=== PATIENT | male | born 1990 ===

== ENCOUNTER 2017-01-28 16:34 | Emergency (ER) | payer OTHER ==
[~2017-01-28] VITALS: Ht 175.3 cm; Wt 73.0 kg
[2017-01-28 16:38] VITALS: TEMP 36.8; Ht 175.3 cm; Wt 73.0 kg
[2017-01-28] MEDS ORDERED: DIPH1TAB87 PO (16:48)
[2017-01-28] MEDS ORDERED: ACET-749 PO (16:48)
[2017-01-28] MEDS ORDERED: ONDANSETRON 4MG OD TAB PO STA (16:51)
[2017-01-28] MEDS ORDERED: MoRPHine SULFATE 10 MG/ML CARP/VIAL IM STA (16:51)
--- NOTE | 2017-01-28 17:20 | DIAGNOSTIC IMAGING REPORT ---
RIGHT FOOT MIN 3 VIEWS ROUTINE, RIGHT ANKLE MIN 3 VIEWS ROUTINE CLINICAL HISTORY: R ankle/foot pain Right COMPARISON STUDY: None. FINDINGS: Diffuse soft tissue swelling within the ankle and dorsal soft tissue swelling within the foot. No fracture or dislocation. No radiopaque foreign bodies. IMPRESSION: No fractures within the right ankle or right foot. Soft tissue swelling. Electronically signed by: Jhon Waddell M.D. 01/28/2017 5:19 PM Dictated Date/Time: 01/28/2017 5:16 PM
[2017-01-28] MEDS ORDERED: TRAM-10 PO (17:36)
[2017-01-28 17:43] VITALS: BP 106/65; PULSE 78; O2SAT 95
--- NOTE | 2017-01-28 19:27 | EMERGENCY ROOM VISIT NOTE ---
History First contact with patient: 16:48 Chief Complaint: ANKLE PAIN Stated Complaint: EDEMA IN LEG-R History of Present Illness The patient is a 26 year old male inmate who presents to the Emergency Room with complaints of persistent right ankle and foot pain with swelling and bruising. The patient reports that he injured his ankle playing basketball last week. He reports feeling a couple pops in the ankle. He continues to walk on the ankle. Security state that he does have crutches. He rates his discomfort a 10 out of 10. He denies any prior history of right ankle injuries. Review of Systems 10 system review was performed and was negative except for pertinent positives and negatives as indicated in history of present illness Past Medical/Surgical History Medical Problems: (1) No significant past medical history Surgical Problems: (1) No history of previous surgery Social History Smoking Status: Current Every Day Smoker Alcohol Use: none Marital Status: single Housing Status: other (incarcerated) Current/Historical Medications Scheduled Diphenhydramine Hcl (Benadryl Allergy), 1 TAB PO DAILY Scheduled PRN Acetaminophen/Codeine (Tylenol W/Codeine #3), 1 TAB PO TID PRN for Pain Tramadol (Ultram), 1-2 TAB PO Q4H PRN for Pain Allergies Coded Allergies: No Known Allergies (Unverified , 01/28/17) Physical Exam Vital Signs Date Time Temp Pulse Resp B/P Pulse Ox O2 Delivery O2 Flow Rate FiO2 01/28/17 17:43 78 106/65 95 01/28/17 16:38 36.8 64 20 125/71 95 Room Air Pain Rating (0-10): 3.0 Physical Exam CONSTITUTIONAL: Healthy and well nourished. Alert and oriented X 3 with positive affect. Patient appears in moderate discomfort from pain. HEENT: Normocephalic, atraumatic. Pupils equal, round and reactive. NECK: Full active range of motion without discomfort. MUSCULOSKELETAL: Examination shows significant right ankle and foot edema with ecchymosis. No open wounds noted. The patient is tender about the entire ankle and dorsum of the foot. Negative anterior draw. Pedal pulses are intact. INTEGUMENTARY: No rash or other significant dermatologic conditions noted. NEUROLOGIC: Right foot and toes are sensory intact. Medical Decision & Procedures ER Provider Diagnostic Interpretation: My interpretation of right ankle and foot x-rays does not show any acute fractures, dislocations or ankle mortise asymmetry. Radiologist reports were also reviewed with concurrence. Medications Administered Medications (Trade) Dose Ordered Sig/Felipa Route Start Time Stop Time Status Last Admin Dose Admin Morphine Sulfate (MoRPHine SULFATE INJ) 10 mg NOW STAT IM 01/28/17 16:51 01/28/17 16:53 DC 01/28/17 17:12 10 MG Ondansetron HCl (Zofran Odt) 4 mg NOW STAT PO 01/28/17 16:51 01/28/17 16:53 DC 01/28/17 17:11 4 MG ED Course Patient history and physical exam were performed. Nurse's notes were reviewed. The patient was administered IM morphine and Zofran ODT for pain. X-rays of the right ankle and foot were normal. The patient was instructed to remain nonweightbearing, using his crutches. He was encouraged to alternate ibuprofen and Tylenol for baseline pain relief. The patient was provided a prescription for Ultram as needed for breakthrough pain. The patient will be referred to [facility] for further reevaluation and management. The patient voiced understanding of all discharge instructions, and rated his pain a 3 out of 10. Impression Primary Impression: Right ankle sprain Departure Information Dispostion Home / Self-Care Condition GOOD Prescriptions Tramadol (Ultram) 50 Mg Tab 1-2 TAB PO Q4H Y for Pain, #20 TAB For Initial Treatment Prov: Diogenes Thomas PA 01/28/17 Forms HOME CARE DOCUMENTATION FORM, IMPORTANT VISIT INFORMATION Patient Instructions My [facility] Additional Instructions Intermittently apply ice and elevate ankle/foot above heart for swelling and pain. Use crutches - no weight on foot. Ibuprofen 800 mg and/or Tylenol 1000 mg every 8 hours. You may also alternate these medications for more effective pain relief: Ibuprofen --4 HRS--> Tylenol --4 HRS--> ibuprofen --4 HRS--> Tylenol .... Ultram if needed for worse pain. Follow-up with [facility] for further reevaluation and management - call Monday for an appointment. Problem Qualifiers Primary Impression: Right ankle sprain Encounter type: initial encounter Involved ligament of ankle: unspecified ligament Qualified Codes: S93.401A - Sprain of unspecified ligament of right ankle, initial encounter
== END 2017-01-28 17:44 | disposition home or self-care (01) ==
LOC: C.EDB 16:37 → C.EDD 17:44
DX: S93.401A Sprain of unspecified ligament of right ankle, initial encounter (principal); X58.XXXA Exposure to other specified factors, initial encounter; Y93.67 Activity, basketball; F17.200 Nicotine dependence, unspecified, uncomplicated

== ENCOUNTER 2017-02-14 20:41 | Inpatient (IN) | payer OTHER ==
[~2017-02-14] VITALS: Ht 175.3 cm; Wt 71.0 kg
[~2017-02-14 20:41] MED LIST: ACET-749 PO; DIPH1TAB87 PO; TRAM-10 PO
[2017-02-14] MEDS ORDERED: ACET-1256 PO (21:13)
[2017-02-14] MEDS ORDERED: CLR10 PO (21:13)
[2017-02-14] MEDS ORDERED: DIVA500T5 PO (21:13)
[2017-02-14] MEDS ORDERED: DIPH25CA65 PO (21:13)
[2017-02-14] MEDS ORDERED: SERT50TA PO (21:13)
[2017-02-14] MEDS ORDERED: VNTHFA/IN INH (21:13)
[2017-02-14] MEDS ORDERED: ONDANSETRON INJ 2 MG/ML 2 ML VIAL IV STA (21:39)
[2017-02-14] MEDS ORDERED: MoRPHine SULFATE 10 MG/ML CARP/VIAL IV STA (21:39)
[2017-02-14] MEDS ORDERED: SODIUM CHLORIDE 0.9% 1000ML 1,000 ML IV ONE (21:45)
[2017-02-14 22:06] LABS: BASO % 0.4 %; BASO ABS # 0.03 K/uL (0-0.2); COMPLETE YES; EOS % 2.3 %; IG% 0.2 %; LYMPH % 29.5 %; LYMPH ABS # 2.52 K/uL (1.2-3.4); MEAN CELL VOLUME 96.2 fL (80-100); MEAN CORPUSCULAR HEMOGLOBIN 34.9 pg (25-34); MEAN CORPUSCULAR HGB CONC 36.3 g/dl (32-36); MEAN PLATELET VOLUME 10.4 fL (7.4-10.4); MONO % 11.5 %; NEUT % 56.1 %; PLATELET COUNT 255 K/uL (130-400); RED BLOOD COUNT 4.16 M/uL (4.7-6.1); WHITE BLOOD COUNT 8.54 K/uL (4.8-10.8)
[2017-02-14 22:24] LABS: BUN/CREATININE RATIO 13.9 (10-20); CREATININE 0.7 mg/dl (0.60-1.40)
--- NOTE | 2017-02-14 22:25 | DIAGNOSTIC IMAGING REPORT ---
RIGHT FOOT MIN 3 VIEWS ROUTINE CLINICAL HISTORY: Right foot pain COMPARISON: 01/28/2017 DISCUSSION: No fractures or dislocations are visualized. There is no erosive disease. IMPRESSION: No evidence of fracture. No evidence of erosive disease. Electronically signed by: Orlando Guillermo M.D. 02/14/2017 10:24 PM Dictated Date/Time: 02/14/2017 10:23 PM
--- NOTE | 2017-02-14 22:28 | DIAGNOSTIC IMAGING REPORT ---
RIGHT ANKLE MIN 3 VIEWS ROUTINE CLINICAL HISTORY: Right ankle pain. Trauma. COMPARISON: 01/28/2017 DISCUSSION: There is a subtle lucency at the level of the medial malleolar tip. This likely represents a projectional artifact although a nondisplaced fracture cannot be excluded with certainty. There is lateral soft tissue swelling. No fractures the distal fibular visualized. The ankle mortise appears intact. IMPRESSION: Subtle transverse lucency involving the medial malleolar tip. While likely representing a projectional artifact, a nondisplaced fracture cannot be excluded with certainty Electronically signed by: Orlando Guillermo M.D. 02/14/2017 10:27 PM Dictated Date/Time: 02/14/2017 10:24 PM
[2017-02-14 22:29] LABS: CKMB/CK RATIO 1.7 (0-3.0)
[2017-02-14] MEDS ORDERED: NURSING VERBAL MED ORDER ONE (23:30)
[2017-02-15 00:25] VITALS: BP 117/76; PULSE 59; TEMP 36.7; O2SAT 97
[2017-02-15 00:50] VITALS: Ht 175.3 cm; Wt 71.0 kg
--- NOTE | 2017-02-15 00:50 | EMERGENCY ROOM VISIT NOTE ---
ED Visit Note First contact with patient: 21:32 I have personally evaluated and examined this patient. I agree with assessment and plan of Sj Velez PA-C. 26 yr old male with right ankle injury 2 weeks ago. Note with increased swelling, severe ankle/upper foot pain, loss of sensation in toes, decreased cap refill. Does have pulses though difficult to say they are equal to left as there is so much swelling of ankle/foot. Imaging reveals there is fracture which did not appear on previous imaging. Likely this is increased pressure due to being in [facility] and not keeping leg elevated. There is no evidence of septic joint at this time without redness, fever, streaking, nor WBC elevation. Discussed with ortho who will bring in for further work-up and evaluation.
[2017-02-15] MEDS ORDERED: ACETAMINOPHEN 325 MG TAB PO PRN (01:00)
[2017-02-15] MEDS ORDERED: MoRPHine SULFATE 2 MG/ML CARP IV PRN (01:00)
[2017-02-15] MEDS: LACTATED RINGER'S 1000ML 1,000 ML IV SCH (01:16)
--- NOTE | 2017-02-15 01:48 | EMERGENCY ROOM VISIT NOTE ---
ED Visit Note First contact with patient: 21:16 Chief Complaint: Right foot pain. History of Present Illness: Mr. Ahmadi is a 26-year-old male who is brought into the ED in a wheelchair accompanied by 2 senior living guards complaining of right foot pain. Historically patient reports on approximately January 21 he injured his right ankle and foot playing basketball. He was seen in this ED on January 28 and had x -rays of the foot and ankle performed that showed no acute fractures or dislocations but mild swelling. He was placed on nonweightbearing crutches and discharged back to the senior living for follow-up with orthopedics. Since being return to senior living he reports he has not been able to follow-up with orthopedics; the guards that brought the patient to the emergency department as well as my discussing the case with nursing personnel at the senior living no reason was noted while he was never followed up with orthopedics. Patient reports since being discharge from this emergency department he has severe pain throughout the foot excluding the posterior aspect of the foot including the Achilles tendon and calcaneus. He describes his pain as a pressure and sharp sensation. He rates his discomfort 9/10. The pain is nonradiating. The pain worsens with palpation, all movement of the ankle, any attempt to ambulate without crutches. He has not identified any alleviating factors related to the pain. He reports he has been taken Tylenol without relief of his discomfort. Associated with his pain he reports he cannot feel his foot and he has noted moderate swelling of the foot. He denies any hip pain, knee pain, lower leg pain, previous significant injuries or surgeries to the ankle/foot, fevers, chills. In the nursing notes that accompany the patient they noticed a decreased capillary refill time when compared bilaterally. Review of Systems: As noted above in history of present illness. Past Medical History: Asthma, depression. Current Medications: Medications Dose Route/Sig Max Daily Dose Days Date Category Ventolin Hfa (Albuterol) 200 Puffs/22275 Mcg Aers 2 Puffs INH QID PRN 02/14/17 Reported Zoloft (Sertraline HCl) 50 Mg Tab 50 Mg PO HS 02/14/17 Reported Claritin (Loratadine) 10 Mg Tab 10 Mg PO DAILY 02/14/17 Reported Depakote Delay Rel (Divalproex Sodium) 500 Mg Tab 1,000 Mg PO HS 02/14/17 Reported Benadryl Allergy (Diphenhydramine Hcl) 25 Mg Cap 50 Mg PO HS 30 02/14/17 Reported Tylenol (Acetaminophen) 500 Mg Tab 1,000 Mg PO BID 02/14/17 Reported Allergies to Medications: Patient denies and none reported. Social History: Patient is currently incarcerated. Physical Examination: Vital Signs: Date Time Temp Pulse Resp B/P Pulse Ox O2 Delivery O2 Flow Rate FiO2 02/14/17 22:39 78 18 119/78 97 Room Air 02/14/17 20:57 36.9 80 16 123/62 96 Room Air GENERAL: 26-year-old male in mild to moderate distress due to pain, nontoxic- appearing, afebrile and hemodynamically stable. NEUROLOGICAL: Awake, alert and oriented to person, place and time. Answering questions appropriately and following commands. SKIN: Warm, dry and pink. Right Foot: Is swollen and slightly discolored. No ecchymosis or bruising. Patient has a small erythematous area just proximal to the toes. This area does not appear cellulitic or feels warmer than other skin tissue. No soft tissue trauma was seen. THORAX: Lungs sounds are clear to auscultation and equal bilaterally with symmetrical chest wall. No wheezing, rales or rhonchi. No crepitus, tenderness , subcutaneous air or deformities noted. HEART: Regular rate and rhythm. No gallops, rubs or murmurs are appreciated. ABDOMEN: Flat, soft and nontender. Positive bowel sounds in all quadrants. No guarding, rigidity or organomegaly. RIGHT LOWER EXTREMITY: No gross bony deformity. No tenderness in the hip, thigh , ankle or lower leg. Moderate tenderness over the medial, lateral and top of the foot. There is mild diffuse swelling throughout the foot. As previously noted there is a small area of erythema proximal to the toes that does not appear cellulitic or is hot to the touch. There is no lymphangitis from this area. I do not appreciate any bony deformities or crepitus. Any attempt to move the ankle or the toes increases the patient's discomfort. Dorsalis pedis and anterior tibialis pulse is intact. Capillary refill was slightly delayed prior to approximately 1 second when compared bilaterally. Patient reports he could not feel me palpating his foot after multiple attempts. Patient refused to do range of motion exercises of the feet and toes due to pain. ED Course: Patient is assessed as noted above. Laboratory Testing: Test 02/14/17 21:55 Range/Units White Blood Count 8.54 4.8-10.8 K/uL Red Blood Count 4.16 4.7-6.1 M/uL Hemoglobin 14.5 14.0-18.0 g/dL Hematocrit 40.0 42-52 % Mean Corpuscular Volume 96.2 80-100 fL Mean Corpuscular Hemoglobin 34.9 25-34 pg Mean Corpuscular Hemoglobin Concent 36.3 32-36 g/dl Platelet Count 255 130-400 K/uL Mean Platelet Volume 10.4 7.4-10.4 fL Neutrophils (%) (Auto) 56.1 % Lymphocytes (%) (Auto) 29.5 % Monocytes (%) (Auto) 11.5 % Eosinophils (%) (Auto) 2.3 % Basophils (%) (Auto) 0.4 % Neutrophils # (Auto) 4.79 1.4-6.5 K/uL Lymphocytes # (Auto) 2.52 1.2-3.4 K/uL Monocytes # (Auto) 0.98 0.11-0.59 K/uL Eosinophils # (Auto) 0.20 0-0.5 K/uL Basophils # (Auto) 0.03 0-0.2 K/uL RDW Standard Deviation 46.0 36.4-46.3 fL RDW Coefficient of Variation 13.1 11.5-14.5 % Immature Granulocyte % (Auto) 0.2 % Immature Granulocyte # (Auto) 0.02 0.00-0.02 K/uL Sodium Level 143 136-145 mmol/L Potassium Level 4.0 3.5-5.1 mmol/L Chloride Level 107 98-107 mmol/L Carbon Dioxide Level 29 21-32 mmol/L Anion Gap 7.0 3-11 mmol/L Blood Urea Nitrogen 10 7-18 mg/dl Creatinine 0.70 0.60-1.40 mg/dl Est Creatinine Clear Calc Drug Dose 158.6 ml/min Estimated GFR () 149.9 Estimated GFR (Non- 129.3 BUN/Creatinine Ratio 13.9 10-20 Random Glucose 91 70-99 mg/dl Calcium Level 9.0 8.5-10.1 mg/dl Total Creatine Kinase 115 39-308 U/L Creatine Kinase MB 1.9 0.5-3.6 ng/ml Creatine Kinase MB Ratio 1.7 0-3.0 Right Foot X-Rays: Were read by myself and the radiologist showing no acute fractures or dislocations when compared to previous. Right Ankle X-Rays: Were read by myself and the radiologist showing a subtle lucency involving the tip of the medial malleolus that was not apparent on his previous x-rays. The radiologist queries while this is truly a nondisplaced fracture or possible object time artifact. An IV lock was initiated and patient received 6 mg of morphine IV for pain and 4 mg of Zofran IV. Patient was reassessed multiple times during his stay in the emergency department. Patient's case was reviewed with Dr. Murguia; he independently assessed the patient we agreed on diagnostic approach, treatment, disposition and plan. Dr. Murguia consulted Dr. Eris Gamboa, orthopedist for specialty care and treatment. Dr. Gamboa felt the patient should be admitted for observation and reevaluation in the morning. Patient and senior living staff were noted about patient's observation/admission. Patient was educated about today's findings. Clinical Impression: Right foot/ankle pain. Right foot/ankle swelling and numbness. Decision-Making: Initially my differential diagnosis I considered fracture, sprain, uncontrolled swelling, compartment syndrome and other causes. Disposition and Plan: Patient be brought in the hospital by Dr. Eris Gamboa, orthopedist, for observation/admission. Please see his notes and orders for final disposition and plan.
[2017-02-15] MEDS: MoRPHine SULFATE 2 MG/ML CARP IV PRN ×2 (03:47→19:24)
[2017-02-15] MEDS: OXYCODONE HCL IR 5 MG TAB (IMMEDIATE RELEASE) PO PRN ×2 (08:07→12:50)
--- NOTE | 2017-02-15 09:49 | HISTORY & PHYSICAL EXAMINATION ---
DATE OF ADMISSION: 02/14/2017 CHIEF COMPLAINT: Left ankle pain and swelling. HISTORY OF PRESENT ILLNESS: Mr. Ahmadi is a 26-year-old male who presented to the ER last night in a wheelchair [facility]. He was accompanied by 2 senior living guards for right foot pain. The patient states on 01/21/2017 he injured his right ankle playing basketball, he was seen in the Emergency Room on 01/28/2017. He had normal x-rays and was discharged with nonweightbearing status, a walking boot and was to follow up with orthopedics. The patient has not followed up with orthopedics but reason is unknown at this time. He had severe pain throughout the foot since his discharge. He has no radicular symptoms. He denies any low back pain or other injuries from this fall. The patient states he is unable to move his foot and has had numbness in his toes. This morning the numbness seems to have resolved. He still has difficulty moving his foot in any direction. He finds he has only had relief of his pain with his knee flexed in an external rotation. He has been taking Tylenol extra strength without relief. He states he has been compliant with his walking boot and his nonweightbearing status. He denied fever or chills at this time. PAST MEDICAL HISTORY: Asthma and depression. FAMILY HISTORY: Negative. SOCIAL HISTORY: The patient is currently incarcerated. He smokes cigarettes. He denies alcohol or other drug use. He is not and has 2 children. MEDICATIONS: Ventolin HFA 200 mg 2 puffs q.i.d. p.r.n., Zoloft 50 mg at bedtime, Claritin 10 mg daily, Depakote 1000 mg at bedtime, Benadryl 50 mg at bedtime, Tylenol 500 mg 2 tablets b.i.d. ALLERGIES: None. REVIEW OF SYSTEMS: See HPI. Ten other systems reviewed, all negative. PHYSICAL EXAMINATION: VITAL SIGNS: Height is 69 inches, weight 71 kilograms. BMI is 23. GENERAL: This is a well-developed, well-nourished male who is alert and oriented x3. Mood and affect are appropriate. HEAD, EYES, EARS, NOSE, AND THROAT: Normocephalic, atraumatic. Mucous membranes are moist and intact. NECK: Supple without lymphadenopathy. HEART: Regular rate and rhythm without murmurs, rubs or gallops. LUNGS: Clear to auscultation without wheezes or rhonchi. ABDOMEN: Soft and nontender. Bowel sounds are equal and active. EXTREMITIES: With attention to the right ankle the patient has no obvious deformity. He has some mild ecchymosis around the medial malleolus. He is diffusely tender throughout the whole foot and ankle. He has moderate edema. He has no obvious erythema or warmth to touch. There is no lymphangitis. The patient is unable to actively plantarflex or dorsiflex. He essentially has very limited range of motion of the foot. Any kind of passive range of motion causes pain. Distal pulses and capillary refill are intact. Again, he is diffusely tender but the majority of his tenderness seems to be over the medial malleolus. LABORATORY RESULTS: White count is 8.5. Electrolytes are all within normal limits. X-RAY EXAMINATION: AP and lateral views of the ankle are essentially normal. His has a transverse lucency of the medial tip of the medial malleolus. This could be potentially artifact, but a fracture is not excluded. IMPRESSION: Left ankle pain. Possible avulsion fracture. PLAN: The patient seems to be getting some relief with some mild elevation overnight. We will continue to monitor. The patient at this time is his foot is warm. There is no obvious discoloration. His vascular status seems to be intact. Would like to observe him throughout the day. If he does not improve with sensation, range of motion we need to consider an MRI later this afternoon. Will discuss with Dr. Matson who is the rounding physician today. He will continue oxycodone 5-10 mg for pain. He also has IV morphine ordered for break-through pain. He is also getting Tylenol p.r.n. Continue nonweightbearing status. [facility]
[2017-02-15 15:50] VITALS: BP 98/58; PULSE 69; TEMP 36.7; O2SAT 97
[2017-02-15] MEDS ORDERED: NURSING VERBAL MED ORDER ONE (18:30)
[2017-02-15] MEDS: ONDANSETRON INJ 2 MG/ML 2 ML VIAL IV PRN (19:23)
[2017-02-15 22:45] VITALS: BP 113/46; PULSE 61; TEMP 36.6; O2SAT 96
[2017-02-16] MEDS: LACTATED RINGER'S 1000ML 1,000 ML IV SCH (01:08)
[2017-02-16 06:57] VITALS: BP 100/49; PULSE 63; TEMP 36.7; O2SAT 96
[2017-02-16 09:30] VITALS: O2SAT 96
--- NOTE | 2017-02-16 09:32 | DIAGNOSTIC IMAGING REPORT ---
MRI OF THE RIGHT HINDFOOT NO CONTRAST CLINICAL HISTORY: Right foot pain. Evaluate for abscess. COMPARISON STUDY: Conventional radiographic study dated 02/14/2017 FINDINGS: There is marrow edema involving the distal fibula, and medial malleolus. A discrete fracture line is not visualized. There is soft tissue edema, most pronounced laterally. No tendon ruptures are visualized. There is mild intrasubstance signal within the peroneus longus tendon. There is no evidence of major ligamentous disruption. There are no fluid collections to indicate an abscess on this noncontrast study. IMPRESSION: 1. Marrow edema involving the distal fibula and medial malleolus consistent with bone bruises. Discrete fracture lines are not visualized 2. No evidence of major ligamentous disruption 3. No evidence of tendon rupture. 4. No abscess identified 5. Soft tissue edema Electronically signed by: Orlando Guillermo M.D. 02/16/2017 9:30 AM Dictated Date/Time: 02/16/2017 9:21 AM
[2017-02-16] MEDS: OXYCODONE HCL IR 5 MG TAB (IMMEDIATE RELEASE) PO PRN (09:45)
[2017-02-16] MEDS: ONDANSETRON INJ 2 MG/ML 2 ML VIAL IV PRN (11:11)
[2017-02-16] MEDS: KETOROLAC TROMETHAMINE 30 MG/ML VIAL IV SCH ×2 (15:40→22:03)
[2017-02-16 16:00] VITALS: BP 116/68; PULSE 84; TEMP 36.7; O2SAT 97
--- NOTE | 2017-02-16 16:04 | Orthopedic Progress Note ---
Orthopedic Progress Note Date of Service February 16, 2017. Subjective Additional Notes: No new changes. Continues with pain in the right foot/ankle. MRI done this AM. Objective capillary refill less than 2 sec. Right ankle with swelling. Dorsum of foot with mild swelling. Tender on palpation and ROM. DP pulse present. Date Time Temp Pulse Resp B/P Pulse Ox O2 Delivery O2 Flow Rate FiO2 02/16/17 09:30 96 Room Air 02/16/17 06:57 36.7 63 16 100/49 96 Room Air 02/15/17 22:45 36.6 61 16 113/46 96 Room Air 02/15/17 19:55 Room Air Additional Notes: MRI OF THE RIGHT HINDFOOT NO CONTRAST CLINICAL HISTORY: Right foot pain. Evaluate for abscess. COMPARISON STUDY: Conventional radiographic study dated 02/14/2017 FINDINGS: There is marrow edema involving the distal fibula, and medial malleolus. A discrete fracture line is not visualized. There is soft tissue edema, most pronounced laterally. No tendon ruptures are visualized. There is mild intrasubstance signal within the peroneus longus tendon. There is no evidence of major ligamentous disruption. There are no fluid collections to indicate an abscess on this noncontrast study. IMPRESSION: 1. Marrow edema involving the distal fibula and medial malleolus consistent with bone bruises. Discrete fracture lines are not visualized 2. No evidence of major ligamentous disruption 3. No evidence of tendon rupture. 4. No abscess identified 5. Soft tissue edema Assessment & Plan Assessment: Contusion Right Distal Fibula and Medial Malleolus Plan: High Tide walking boot ordered Once fitted, plan for PT /gait training and dc tomorrow Inhouse Planning Pain Management: Toradol, Ultram, Oxy IR DVT Prophylaxis: ASA Discharge Planning Discharge Planning: home Pain Management: Ultram DVT Prophylaxis: ASA
[2017-02-16] MEDS ORDERED: OXYCODONE HCL IR 5 MG TAB (IMMEDIATE RELEASE) PO PRN (17:00)
[2017-02-16] MEDS: TRAMADOL HCL 50 MG TAB PO PRN (20:06)
[2017-02-16 22:52] VITALS: BP 106/62; PULSE 63; TEMP 36.7; O2SAT 96
[2017-02-17] MEDS: LACTATED RINGER'S 1000ML 1,000 ML IV SCH (00:11)
[2017-02-17] MEDS: TRAMADOL HCL 50 MG TAB PO PRN ×2 (00:18→07:14)
[2017-02-17] MEDS: KETOROLAC TROMETHAMINE 30 MG/ML VIAL IV SCH ×2 (03:25→08:18)
[2017-02-17] MEDS ORDERED: NURSING VERBAL MED ORDER ONE (07:15)
[2017-02-17 07:33] VITALS: BP 104/64; PULSE 62; TEMP 36.7; O2SAT 97
[2017-02-17] MEDS: ONDANSETRON INJ 2 MG/ML 2 ML VIAL IV PRN (08:45)
[2017-02-17] MEDS ORDERED: ASPIRIN 325 MG ECTAB PO SCH (09:00)
[2017-02-17 09:43] VITALS: O2SAT 99
[2017-02-17] MEDS ORDERED: IBUP-1427 PO (12:01)
[2017-02-17] MEDS ORDERED: ULT50X PO (12:01)
--- NOTE | 2017-02-17 12:10 | Discharge Instructions ---
Discharge Instructions Date of Service February 17, 2017. Admission Reason for Admission: Right Foot Pain Discharge Discharge Diagnosis / Problem: Right Distal Fibula/Medial Malleolar Bone Contusion Discharge Goals Goal(s): Decrease discomfort, Improve function Activity Recommendations Activity Limitations: per Instructions/Follow-up section Weightbearing Status: Right weightbearing (as tolerated) . Instructions / Follow-Up Instructions / Follow-Up Wear the boot at all times when up ambulating. You may put as much weight as you can tolerate on the foot. Initially, you might only be able to do partial weight bearing. Increase the amount of weight you put on it as it feels better. Use crutches for ambulation if needed Keep the foot up and elevated on 1 - 2 pillows to reduce swelling Gentle range of motion exercises of the ankle as able Ice to ankle as needed Follow up with Dr Gamboa in 2 weeks if symptoms persist. [phone] Current Hospital Diet Patient's current hospital diet: Regular Diet Discharge Diet Recommended Diet: Regular Diet Pending Studies Studies pending at discharge: no Medical Emergencies . Who to Call and When: Medical Emergencies: If at any time you feel your situation is an emergency, please call 911 immediately. . Non-Emergent Contact Non-Emergency issues call your: Primary Care Provider . "Provider Documentation" section prepared by Marques Del Cid. . VTE Core Measure Inpt VTE Proph given/why not?: Other Anticoagulation [place] Drug Monitoring Program Search Results: patient reviewed within database, no issues identified
[2017-02-17 12:42] VITALS: BP 107/59; PULSE 75; TEMP 36.7; O2SAT 99
--- NOTE | 2017-02-21 12:21 | DISCHARGE SUMMARY ---
DISCHARGE DIAGNOSIS: Contusion to right distal fibula and medial malleolus. SECONDARY DIAGNOSES: Asthma, depression. CONSULTS: None. COMPLICATIONS: None. PROCEDURES: None. BRIEF HISTORY: As dictated in history and physical. HOSPITAL SUMMARY: The patient was admitted on the above noted date with the above noted right ankle pain and swelling. He was started on bed rest and pain control. X-rays were showing no evidence of fracture and no evidence of osteomyelitis. There was a subtle lucency noted on the medial malleolar tip of the ankle film, but could have been artifact. The patient continued to have pain and an MRI was ordered. By his second hospital day, he had no new changes, he continued to have pain in the right foot and ankle. MRI showed marrow edema involving the distal fibula and medial malleolus consistent with bone bruises. Discrete fracture lines are not visualized. There is no evidence of ligamentous disruption, tendon ruptures or abscesses. There was some slight soft tissue edema. This was discussed with [facility] physicians and at that point in time, a high tide walking boot was ordered and fitted by orthotics here from [facility]. He was then started on PT protocol for gait training and will be weightbearing as tolerated. It was explained to the patient that he may only be able to put partial weight on it for now and then increase as tolerated. Otherwise, he remained stable and by 02/17/2017 it was felt that he was stable for discharge. For further review, please see chart. LAB AND X-RAY DATA: As per chart. DISCHARGE INSTRUCTIONS: The [facility]. DIET: Regular. ACTIVITY: Weightbearing as tolerated right lower extremity. Follow instructions as noted and follow up with Dr. Gamboa in 2 weeks. The patient to call for appointment. DISCHARGE MEDICATIONS: Ibuprofen 600 mg p.o. q. 6 hours p.r.n., resume taking acetaminophen 1000 mg p.o. b.i.d., albuterol 2 puffs inhaled q.i.d., Benadryl Allergy 50 mg p.o. at bedtime, Depakote delayed release 1000 mg at bedtime, loratadine 10 mg p.o. daily and sertraline 50 mg at bedtime.
== END 2017-02-17 14:33 | DRG 605 ==
LOC: ENRESERVTM → ENRESERVDT → C.EDB 20:42 → C.MSN 23:32
PROVIDERS: ADMIT Orthopaedic Surgery; ATTEND Orthopaedic Surgery
DX: S90.01XA Contusion of right ankle, initial encounter (principal); F32.9 Major depressive disorder, single episode, unspecified; J45.909 Unspecified asthma, uncomplicated; F17.210 Nicotine dependence, cigarettes, uncomplicated; Z79.899 Other long term (current) drug therapy; X58.XXXA Exposure to other specified factors, initial encounter; Y93.67 Activity, basketball

== ENCOUNTER → 2017-04-24 | Outpatient (CLI) | payer OTHER ==
[~2017-04-24] MED LIST changes: +ACET-1256 PO; -ACET-749 PO; +CLR10 PO; -DIPH1TAB87 PO; +DIPH25CA65 PO; +DIVA500T5 PO; +IBUP-1427 PO; +SERT50TA PO; -TRAM-10 PO; +VNTHFA/IN INH
--- NOTE | 2017-04-24 09:54 | DIAGNOSTIC IMAGING REPORT ---
RIGHT ANKLE MIN 3 VIEWS HISTORY: 27 years-old Male RIGHT ANKLE PAIN COMPARISON: Right foot and ankle radiographs 02/14/2017 TECHNIQUE: 3 views of the right ankle. FINDINGS: There is a 3 mm linear density again seen adjacent to the inferior tip of the medial malleolus suggesting remote fracture or accessory ossicle. Ankle mortise is well maintained and anatomically positioned. Talar dome is smooth without osteochondral defect. No acute fracture or dislocation is identified. There is mild spurring of the anterior process of talus seen dorsally. There is mild to moderate soft tissue swelling about the ankle a small joint effusion. No radiopaque foreign body. IMPRESSION: 1. No acute fracture or dislocation. 2. Mild to moderate soft tissue swelling about the ankle with small joint effusion. The above report was generated using voice recognition software. It may contain grammatical, syntax or spelling errors. Electronically signed by: Raheem Yusuf M.D. 04/24/2017 9:52 AM Dictated Date/Time: 04/24/2017 9:50 AM
== END | disposition home or self-care (01) ==
LOC: C.RDSM 11:36
PROVIDERS: ATTEND Family Medicine
DX: M25.571 Pain in right ankle and joints of right foot (principal)